=== PATIENT | male | born 1955 | race African-American/Black ===

== ENCOUNTER 2017-09-12 14:27 | Emergency (ER) | payer OTHER ==
[~2017-09-12] VITALS: Ht 172.7 cm; Wt 100.0 kg
[2017-09-12] MEDS ORDERED: IBUPROFEN 600MG TABLET PO ONE (17:45)
[2017-09-12 18:51] VITALS: BP 147/84
== END 2017-09-12 18:57 | disposition home or self-care (01) ==
LOC: ER 14:27
DX: J02.9 Acute pharyngitis, unspecified (principal); R05 Cough; R03.0 Elevated blood-pressure reading, without diagnosis of hypertension
CPT/HCPCS: 71045; 87070; 87430; 99285